=== PATIENT | male | born 1990 | race Caucasian/White ===

== ENCOUNTER 2023-01-27 01:17 | Emergency (ER) | payer MEDICAID ==
[2023-01-27 01:20] VITALS: PULSE 97
== END 2023-01-27 01:30 | disposition left against medical advice (07) ==
LOC: ER 01:17
DX: Z53.21 Procedure and treatment not carried out due to patient leaving prior to being seen by health care provider (principal)
CPT/HCPCS: 99281

== ENCOUNTER 2024-06-18 08:44 | Emergency (ER) | payer OTHER ==
[~2024-06-18] VITALS: Ht 175.3 cm; Wt 66.0 kg
[2024-06-18 09:02] VITALS: O2SAT 98
[2024-06-18] MEDS ORDERED: IBUP-2028 MT (10:37)
[2024-06-18] MEDS: IBUPROFEN 400MG TABLET PO ONE (10:55)
[2024-06-18 10:58] VITALS: BP 138/70; PULSE 88; RESP 18; TEMP 37.2; O2SAT 98
== END 2024-06-18 11:03 | disposition home or self-care (01) ==
LOC: ER 08:44
DX: B34.9 Viral infection, unspecified (principal)
CPT/HCPCS: 99282